=== PATIENT | female | born 1960 | race Caucasian/White ===

== ENCOUNTER 2021-10-25 20:18 | Inpatient (IN) | payer OTHER ==
[2021-10-25 20:25] VITALS: BMI 24.3
[2021-10-25] MEDS ORDERED: ONDANSETRON 4 MG/2 ML VIAL IVPUSH ONE (20:58)
[2021-10-25] MEDS ORDERED: morphine CARPU-JECT 4 MG/1 ML DISP.SYRIN IVPUSH ONE (20:58)
[2021-10-25] MEDS ORDERED: morphine SULFATE 4 MG/ML VIAL IVPUSH ONE (20:58)
[2021-10-25] MEDS ORDERED: morphine SULFATE 4 MG/ML VIAL ONE (21:55)
[2021-10-25 22:09] LABS: BASO % 0.2 % (0-2.0); EOS % 0.1 % (0-4.5); HEMATOCRIT 42.6 % (32.4-45.2); HEMOGLOBIN 14.1 GM/dL (10.7-15.3); MCHC 33.1 g/dl (32.0-36.0); MEAN CELL VOLUME 87.5 fl (80-96); MEAN PLT VOLUME 8.5 fl (7.5-11.1); MONO % 8.9 % (3.8-10.2); NEUT % 85.8 % (42.8-82.8); PLATELET COUNT 278 10^3/uL (134-434); RBC 4.87 M/mm3 (3.60-5.2); WHITE BLOOD COUNT 15.2 K/mm3 (4.0-10.0)
[2021-10-25 22:17] LABS: INR 1.01 (0.83-1.09); PROTHROMBIN TIME (PATIENT) 11.6 SEC (9.7-13.0)
[2021-10-25 22:19] LABS: URINE APPEARANCE CLEAR; URINE BILIRUBIN 1+ (NEGATIVE); URINE COLOR DK YELLOW; URINE GLUCOSE (UA) NEGATIVE (NEGATIVE); URINE KETONE 2+ (NEGATIVE); URINE LEUK ESTERASE NEGATIVE (NEGATIVE); URINE NITRITE NEGATIVE (NEGATIVE); URINE PROTEIN NEGATIVE (NEGATIVE)
[2021-10-25 22:20] LABS: ACTIVATED PTT 27.4 SECONDS (25.2-36.5)
[2021-10-25 22:30] LABS: CHLORIDE 105 mmol/L (98-107); SODIUM 142 mmol/L (136-145)
[2021-10-25 22:33] LABS: ANION GAP 9 MMOL/L (8-16); CALCIUM 10.7 mg/dL (8.5-10.1); CO2 28 mmol/L (21-32); GLUCOSE,RANDOM 134 mg/dL (74-106)
[2021-10-25 22:34] LABS: BLOOD UREA NITROGEN 10.6 mg/dL (7-18)
[2021-10-25 22:36] LABS: CREATININE 0.7 mg/dL (0.55-1.3); SGOT/AST 345 U/L (15-37)
[2021-10-25 22:37] LABS: SGPT/ALT 539 U/L (13-61)
[2021-10-25 22:38] LABS: BILIRUBIN,TOTAL 4.7 mg/dL (0.2-1); TOT PROT 7.4 g/dl (6.4-8.2)
[2021-10-25 22:39] LABS: ALK PHOS 251 U/L (45-117)
[2021-10-25] MEDS ORDERED: PIPERACILLIN/TAZOB 4.5 GM 4.5 GM in DEXTROSE 5%-WATER 100 ML IVPB ONE (22:55)
[2021-10-26] MEDS ORDERED: PIPERACILLIN/TAZOB 4.5 GM 4.5 GM/100 ML BAG IVPB ONE (00:01)
[2021-10-26 00:18] LABS: LIPASE > 30000 U/L (73-393)
[2021-10-26] MEDS ORDERED: LACTATED RINGERS SOLUTION 1000 ML INFUS.BAG IV ONE (00:50)
[2021-10-26] MEDS ORDERED: LISINOPRIL 20 MG TABLET PO ONE (03:59)
[2021-10-26] MEDS ORDERED: PIPERACILLIN/TAZOB 3.375 GM 3.375 GM in DEXTROSE 5%-WATER - 50 ML IVPB ONE ×2 (06:20→14:00)
[2021-10-26] MEDS ORDERED: LISINOPRIL 20 MG TABLET ONE (06:21)
[2021-10-26] MEDS ORDERED: POTASSIUM CHLORIDE ORAL LIQUID 20 MEQ/15 ML PO ONE (06:26)
[2021-10-26] MEDS ORDERED: LACTATED RINGERS SOLUTION 1,000 ML/1,000 ML INFUS.BAG IV SCH ×2 (06:30→16:38)
[2021-10-26] MEDS ORDERED: POTASSIUM CHLORIDE TABS 20 MEQ TABLET.ER (FP) PO ONE (06:35)
[2021-10-26 09:08] LABS: HEMATOCRIT 39.2 % (32.4-45.2); HEMOGLOBIN 13.1 GM/dL (10.7-15.3); MCH 29.6 pg (25.7-33.7); MCHC 33.5 g/dl (32.0-36.0); MEAN CELL VOLUME 88.2 fl (80-96); MEAN PLT VOLUME 8.8 fl (7.5-11.1); PLATELET COUNT 250 10^3/uL (134-434); RBC 4.45 M/mm3 (3.60-5.2); RDW 13.2 % (11.6-15.6); WHITE BLOOD COUNT 10.6 K/mm3 (4.0-10.0)
[2021-10-26] MEDS ORDERED: PIPERACILLIN/TAZOB 3.375 GM 3.375 GM/50 ML BAG IVPB ONE (09:42)
[2021-10-26 09:44] LABS: CHOLESTEROL 178 mg/dL (50-200); TRIGLYCERIDES 59 mg/dL (0-150)
[2021-10-26 09:45] LABS: LDL CHOLESTEROL (ONLY SJRH) 111 mg/dL (5-100)
[2021-10-26 09:47] LABS: HDL CHOLESTEROL 57 mg/dL (40-60)
[2021-10-26 09:59] LABS: CALCIUM 10.5 mg/dL (8.5-10.1)
[2021-10-26 10:00] LABS: CREATININE 0.7 mg/dL (0.55-1.3); TOT PROT 6.4 g/dl (6.4-8.2)
[2021-10-26] MEDS ORDERED: HYDROCHLOROTHIAZIDE 12.5 MG CAPSULE (FP) PO SCH (10:00)
[2021-10-26] MEDS ORDERED: HYDROCHLOROTHIAZIDE 25 MG TABLET (FP) PO SCH (10:00)
[2021-10-26] MEDS ORDERED: LACTATED RINGERS SOLUTION 1000 ML INFUS.BAG IV SCH (10:00)
[2021-10-26] MEDS ORDERED: PIPERACILLIN/TAZOB 3.375 GM 3.375 GM in DEXTROSE 5%-WATER - 50 ML IVPB SCH (10:00)
[2021-10-26 10:02] LABS: ALBUMIN 3.4 g/dl (3.4-5.0); MAGNESIUM 2.1 mg/dL (1.8-2.4)
[2021-10-26] MEDS: PIPERACILLIN/TAZOB 3.375 GM 3.375 GM in DEXTROSE 5%-WATER - 50 ML IVPB SCH ×2 (10:03→18:06)
[2021-10-26 10:05] LABS: PHOSPHOROUS 2.8 mg/dL (2.5-4.9)
[2021-10-26 10:10] LABS: BILIRUBIN,TOTAL 3.8 mg/dL (0.2-1)
[2021-10-26 10:33] LABS: AMYLASE 439 U/L (25-115)
[2021-10-26] MEDS ORDERED: INDOMETHACIN 50 MG RECTAL SUPPOSITORY PR ONE (13:00)
[2021-10-26] MEDS ORDERED: IOHEXOL 300 MG/ML INFUS..BTL IJ ONE (13:55)
[2021-10-26] MEDS ORDERED: DEXTROSE 5%-WATER - 50 ML IVPB ONE (18:03)
[2021-10-26] MEDS ORDERED: PIPERACILLIN/TAZOBACTAM 3.375 GM VIAL IVPB ONE (18:03)
[2021-10-26] MEDS ORDERED: LISINOPRIL 20 MG TABLET PO SCH (22:00)
[2021-10-27] MEDS ORDERED: PIPERACILLIN/TAZOBACTAM 3.375 GM VIAL IVPB ONE ×3 (01:02→17:40)
[2021-10-27] MEDS ORDERED: DEXTROSE 5%-WATER - 50 ML IVPB ONE ×3 (01:02→17:40)
[2021-10-27] MEDS: PIPERACILLIN/TAZOB 3.375 GM 3.375 GM in DEXTROSE 5%-WATER - 50 ML IVPB SCH ×3 (01:46→17:49)
[2021-10-27] MEDS ORDERED: LACTATED RINGERS SOLUTION 1,000 ML/1,000 ML INFUS.BAG IV SCH ×2 (05:50→12:00)
[2021-10-27 09:39] LABS: BASO % 0.3 % (0-2.0); EOS % 3.5 % (0-4.5); HEMATOCRIT 36.8 % (32.4-45.2); HEMOGLOBIN 12.3 GM/dL (10.7-15.3); MCH 29.6 pg (25.7-33.7); MCHC 33.5 g/dl (32.0-36.0); MEAN CELL VOLUME 88.3 fl (80-96); MEAN PLT VOLUME 9.3 fl (7.5-11.1); MONO % 9.7 % (3.8-10.2); NEUT % 70.5 % (42.8-82.8); PLATELET COUNT 211 10^3/uL (134-434); RBC 4.16 M/mm3 (3.60-5.2); RDW 13.1 % (11.6-15.6); WHITE BLOOD COUNT 8.6 K/mm3 (4.0-10.0)
[2021-10-27] MEDS: ENOXAPARIN NA (PORCINE) 40 MG/0.4 ML DISP.SYRIN SQ SCH (10:02)
[2021-10-27 10:15] LABS: ALBUMIN 2.9 g/dl (3.4-5.0); CALCIUM 9.8 mg/dL (8.5-10.1); MAGNESIUM 1.9 mg/dL (1.8-2.4)
[2021-10-27 10:16] LABS: BILIRUBIN,DIRECT 1.4 mg/dL (0.0-0.2)
[2021-10-27 10:17] LABS: CREATININE 0.6 mg/dL (0.55-1.3)
[2021-10-27 10:19] LABS: BILIRUBIN,TOTAL 2.3 mg/dL (0.2-1); TOT PROT 5.7 g/dl (6.4-8.2)
[2021-10-27] MEDS ORDERED: POTASSIUM CHLORIDE TABS 20 MEQ TABLET.ER (FP) PO ONE (16:44)
[2021-10-28] MEDS ORDERED: DEXTROSE 5%-WATER - 50 ML IVPB ONE ×3 (00:17→17:18)
[2021-10-28] MEDS ORDERED: PIPERACILLIN/TAZOBACTAM 3.375 GM VIAL IVPB ONE ×3 (00:17→17:17)
[2021-10-28] MEDS: PIPERACILLIN/TAZOB 3.375 GM 3.375 GM in DEXTROSE 5%-WATER - 50 ML IVPB SCH ×3 (01:01→17:30)
[2021-10-28 09:20] LABS: BASO % 0.2 % (0-2.0); EOS % 6.4 % (0-4.5); HEMATOCRIT 35.3 % (32.4-45.2); HEMOGLOBIN 12.1 GM/dL (10.7-15.3); LYMPH % 19.2 % (8-40); MCH 29.9 pg (25.7-33.7); MCHC 34.2 g/dl (32.0-36.0); MEAN CELL VOLUME 87.6 fl (80-96); MEAN PLT VOLUME 8.8 fl (7.5-11.1); MONO % 10.4 % (3.8-10.2); NEUT % 63.8 % (42.8-82.8); PLATELET COUNT 218 10^3/uL (134-434); RBC 4.04 M/mm3 (3.60-5.2); RDW 13.1 % (11.6-15.6); WHITE BLOOD COUNT 8.3 K/mm3 (4.0-10.0)
[2021-10-28] MEDS: ENOXAPARIN NA (PORCINE) 40 MG/0.4 ML DISP.SYRIN SQ SCH (09:43)
[2021-10-28 10:38] LABS: CREATININE 0.7 mg/dL (0.55-1.3)
[2021-10-28 10:39] LABS: CALCIUM 9.7 mg/dL (8.5-10.1)
[2021-10-28 10:40] LABS: ALBUMIN 3.1 g/dl (3.4-5.0); BLOOD UREA NITROGEN 9.3 mg/dL (7-18); TOT PROT 6.2 g/dl (6.4-8.2)
[2021-10-28 10:43] LABS: BILIRUBIN,DIRECT 0.8 mg/dL (0.0-0.2)
[2021-10-28 10:45] LABS: BILIRUBIN,TOTAL 1.3 mg/dL (0.2-1)
[2021-10-28] MEDS: amLODIPine BESYLATE 5 MG TABLET (FP) PO SCH (11:57)
[2021-10-28] MEDS: LACTATED RINGERS SOLUTION 1,000 ML/1,000 ML INFUS.BAG IV SCH (23:15)
[2021-10-29] MEDS ORDERED: DEXTROSE 5%-WATER - 50 ML IVPB ONE ×3 (01:01→16:40)
[2021-10-29] MEDS ORDERED: PIPERACILLIN/TAZOBACTAM 3.375 GM VIAL IVPB ONE ×3 (01:01→16:40)
[2021-10-29] MEDS: PIPERACILLIN/TAZOB 3.375 GM 3.375 GM in DEXTROSE 5%-WATER - 50 ML IVPB SCH ×3 (01:14→17:13)
[2021-10-29 08:44] LABS: BASO % 0.3 % (0-2.0); HEMATOCRIT 38.6 % (32.4-45.2); HEMOGLOBIN 13.1 GM/dL (10.7-15.3); LYMPH % 20.8 % (8-40); MCH 29.6 pg (25.7-33.7); MCHC 33.8 g/dl (32.0-36.0); MEAN CELL VOLUME 87.6 fl (80-96); MEAN PLT VOLUME 8.7 fl (7.5-11.1); MONO % 10.3 % (3.8-10.2); NEUT % 62.6 % (42.8-82.8); PLATELET COUNT 240 10^3/uL (134-434); RBC 4.41 M/mm3 (3.60-5.2); WHITE BLOOD COUNT 6.5 K/mm3 (4.0-10.0)
[2021-10-29 09:00] LABS: MAGNESIUM 2.1 mg/dL (1.8-2.4)
[2021-10-29 09:01] LABS: ALBUMIN 3.2 g/dl (3.4-5.0); CALCIUM 9.9 mg/dL (8.5-10.1)
[2021-10-29 09:03] LABS: CREATININE 0.6 mg/dL (0.55-1.3)
[2021-10-29 09:04] LABS: BILIRUBIN,DIRECT 0.6 mg/dL (0.0-0.2)
[2021-10-29 09:05] LABS: TOT PROT 6.6 g/dl (6.4-8.2)
[2021-10-29 09:06] LABS: BILIRUBIN,TOTAL 0.9 mg/dL (0.2-1)
[2021-10-29] MEDS: ENOXAPARIN NA (PORCINE) 40 MG/0.4 ML DISP.SYRIN SQ SCH (09:36)
[2021-10-29] MEDS: amLODIPine BESYLATE 5 MG TABLET (FP) PO SCH (09:37)
[2021-10-29] MEDS: LACTATED RINGERS SOLUTION 1,000 ML/1,000 ML INFUS.BAG IV SCH (22:45)
[2021-10-30] MEDS ORDERED: DEXTROSE 5%-WATER - 50 ML IVPB ONE ×3 (00:57→17:02)
[2021-10-30] MEDS ORDERED: PIPERACILLIN/TAZOBACTAM 3.375 GM VIAL IVPB ONE ×3 (00:57→17:01)
[2021-10-30] MEDS: PIPERACILLIN/TAZOB 3.375 GM 3.375 GM in DEXTROSE 5%-WATER - 50 ML IVPB SCH ×3 (01:08→17:35)
[2021-10-30] MEDS: LACTATED RINGERS SOLUTION 1,000 ML/1,000 ML INFUS.BAG IV SCH ×2 (06:14→22:53)
[2021-10-30 07:38] LABS: BASO % 0.3 % (0-2.0); HEMOGLOBIN 13.2 GM/dL (10.7-15.3); LYMPH % 26.4 % (8-40); MCH 29.4 pg (25.7-33.7); MCHC 33.8 g/dl (32.0-36.0); MONO % 11.8 % (3.8-10.2); NEUT % 55.5 % (42.8-82.8); PLATELET COUNT 271 10^3/uL (134-434); RBC 4.48 M/mm3 (3.60-5.2); RDW 13.2 % (11.6-15.6)
[2021-10-30 07:57] LABS: ALBUMIN 3.3 g/dl (3.4-5.0)
[2021-10-30 07:58] LABS: CALCIUM 10.3 mg/dL (8.5-10.1); TOT PROT 6.8 g/dl (6.4-8.2)
[2021-10-30 07:59] LABS: ALBUMIN 3.2 g/dl (3.4-5.0); BLOOD UREA NITROGEN 10.3 mg/dL (7-18); MAGNESIUM 2.2 mg/dL (1.8-2.4)
[2021-10-30 08:00] LABS: BILIRUBIN,DIRECT 0.5 mg/dL (0.0-0.2)
[2021-10-30 08:02] LABS: BILIRUBIN,TOTAL 0.8 mg/dL (0.2-1); CREATININE 0.7 mg/dL (0.55-1.3)
[2021-10-30 08:03] LABS: BILIRUBIN,TOTAL 0.9 mg/dL (0.2-1); TOT PROT 6.8 g/dl (6.4-8.2)
[2021-10-30] MEDS ORDERED: amLODIPine BESYLATE 10 MG TABLET (FP) PO SCH (10:00)
[2021-10-30] MEDS ORDERED: BUPIVACAINE HCL/PF 0.5% (5MG/ML) 10 ML VIAL ONE (11:12)
[2021-10-30] MEDS ORDERED: ACETAMINOPHEN INJECTION 100 ML IVPB ONE (12:05)
[2021-10-30] MEDS ORDERED: ceFAZolin SODIUM 1 GM VIAL IVPB ONE ×2 (12:46→13:10)
[2021-10-30] MEDS ORDERED: PROPOFOL 20 ML ONE ×2 (12:52→13:13)
[2021-10-30] MEDS ORDERED: ROCURONIUM BROMIDE 50 MG/5 ML SYRINGE ONE (12:53)
[2021-10-30] MEDS ORDERED: SUCCINYLCHOLINE CHLORIDE 200 MG/10 ML SYRINGE ONE (12:53)
[2021-10-30] MEDS ORDERED: KETAMINE HCL 200 MG/20 ML VIAL ONE (12:53)
[2021-10-30] MEDS ORDERED: BUPIVACAINE HCL/PF 0.5% (5MG/ML) 10 ML VIAL IJ ONE ×2 (13:12)
[2021-10-30] MEDS ORDERED: ONDANSETRON 4 MG/2 ML VIAL IVPUSH PRN ×2 (14:21→14:34)
[2021-10-30] MEDS ORDERED: PIPERACILLIN/TAZOB 3.375 GM 3.375 GM in DEXTROSE 5%-WATER - 50 ML IVPB ONE (14:34)
[2021-10-31] MEDS ORDERED: DEXTROSE 5%-WATER - 50 ML IVPB ONE ×2 (01:14→08:34)
[2021-10-31] MEDS ORDERED: PIPERACILLIN/TAZOBACTAM 3.375 GM VIAL IVPB ONE ×2 (01:14→08:34)
[2021-10-31] MEDS: PIPERACILLIN/TAZOB 3.375 GM 3.375 GM in DEXTROSE 5%-WATER - 50 ML IVPB SCH ×2 (01:36→09:05)
[2021-10-31] MEDS: LACTATED RINGERS SOLUTION 1,000 ML/1,000 ML INFUS.BAG IV SCH (06:50)
[2021-10-31 07:21] VITALS: RESP 18
[2021-10-31 09:17] LABS: BILIRUBIN,DIRECT 0.4 mg/dL (0.0-0.2)
[2021-10-31 09:18] LABS: BILIRUBIN,TOTAL 0.8 mg/dL (0.2-1)
[2021-10-31 09:19] LABS: TOT PROT 6.2 g/dl (6.4-8.2)
[2021-10-31] MEDS ORDERED: amLODIPine BESYLATE 10 MG TABLET (FP) PO SCH (10:00)
[2021-10-31] MEDS ORDERED: ENOXAPARIN NA (PORCINE) 40 MG/0.4 ML DISP.SYRIN SQ SCH (10:00)
[2021-10-31 12:09] VITALS: BP 146/84; PULSE 86
[2021-10-31 12:34] VITALS: TEMP 99
== END 2021-10-31 14:59 | disposition home or self-care (01) | DRG 263 ==
LOC: JER 20:18 → JERBED 10-26 05:17 → J7W 10-26 15:47
PROVIDERS: ADMIT Internal Medicine; ATTEND Nurse Practitioner Family
PROC: 0FC98ZZ Extirpation of Matter from Common Bile Duct, Via Natural or Artificial Opening Endoscopic (ICD-10-PCS; 2021-10-26)
PROC: BF13YZZ Fluoroscopy of Gallbladder and Bile Ducts using Other Contrast (ICD-10-PCS; 2021-10-26)
PROC: 0FT44ZZ Resection of Gallbladder, Percutaneous Endoscopic Approach (ICD-10-PCS; principal; 2021-10-30 12:00)
DX: K85.10 Biliary acute pancreatitis without necrosis or infection (principal); K83.8 Other specified diseases of biliary tract; K76.0 Fatty (change of) liver, not elsewhere classified; K86.89 Other specified diseases of pancreas; R79.89 Other specified abnormal findings of blood chemistry; K80.70 Calculus of gallbladder and bile duct without cholecystitis without obstruction; E03.9 Hypothyroidism, unspecified; I10 Essential (primary) hypertension; K80.10 Calculus of gallbladder with chronic cholecystitis without obstruction; R10.31 Right lower quadrant pain
CPT/HCPCS: 36415; 74177-TC; 76000-TC-FY; 76705-TC; 80053; 80061; 80076; 81003; 82150; 83605; 83690; 83735; 84100; 84443; 84478; 84484; 85025; 85027; 85610; 85730; 86140; 86850; 86900; 86901; 87086; 87186; 88304-TC; 93005; 93010; 94760; 99285-25; C9803-CS; Q9967; U0003; U0005

== ENCOUNTER 2022-01-10 11:07 | Emergency (ER) | payer OTHER ==
[2022-01-10 11:15] VITALS: BP 162/85; PULSE 92; RESP 18; TEMP 98.5; BMI 24.9
== END 2022-01-10 13:24 | disposition home or self-care (01) ==
LOC: JER 11:07
DX: I10 Essential (primary) hypertension (principal)
CPT/HCPCS: 93005; 93010; 99283-25

== ENCOUNTER 2022-05-15 11:22 | Emergency (ER) | payer OTHER ==
[2022-05-15 11:32] VITALS: BP 143/88; PULSE 86; RESP 19; TEMP 98.4; BMI 28.4
[2022-05-15] MEDS ORDERED: ACETAMINOPHEN 1000 MG/100 ML BAG IVPB ONE (12:55)
[2022-05-15] MEDS ORDERED: SODIUM CHLORIDE 0.9% 500 ML INFUS.BAG IV ONE (12:55)
[2022-05-15] MEDS ORDERED: ACETAMINOPHEN INJECTION 100 ML IVPB ONE (13:10)
[2022-05-15 14:30] LABS: BASO % 0.1 % (0-2.0); HEMATOCRIT 39.1 % (32.4-45.2); HEMOGLOBIN 13.1 GM/dL (10.7-15.3); LYMPH % 28.9 % (8-40); MCH 30.6 pg (25.7-33.7); MCHC 33.5 g/dl (32.0-36.0); MEAN CELL VOLUME 91.6 fl (80-96); MEAN PLT VOLUME 8.9 fl (7.5-11.1); MONO % 10.1 % (3.8-10.2); NEUT % 59.9 % (42.8-82.8); PLATELET COUNT 225 10^3/uL (134-434); RBC 4.26 M/mm3 (3.60-5.2); RDW 15.9 % (11.6-15.6); WHITE BLOOD COUNT 5.3 K/mm3 (4.0-10.0)
[2022-05-15 14:40] LABS: INR 0.98 (0.83-1.09); PROTHROMBIN TIME (PATIENT) 11.4 SEC (9.7-13.0)
[2022-05-15 14:43] LABS: ACTIVATED PTT 29.9 SECONDS (25.2-36.5)
[2022-05-15 14:50] LABS: ALBUMIN 4.4 g/dl (3.4-5.0); BLOOD UREA NITROGEN 9.6 mg/dL (7-18)
[2022-05-15 14:54] LABS: CREATININE 0.8 mg/dL (0.55-1.3); TOT PROT 7.4 g/dl (6.4-8.2)
[2022-05-15 14:56] LABS: BILIRUBIN,TOTAL 0.7 mg/dL (0.2-1)
[2022-05-15] MEDS ORDERED: ONDANSETRON 4 MG/2 ML VIAL IVPUSH ONE (18:08)
== END 2022-05-15 20:05 | disposition home or self-care (01) ==
LOC: JER 11:22
PROC: 3E0333Z Introduction of Anti-inflammatory into Peripheral Vein, Percutaneous Approach (ICD-10-PCS; principal; 2022-05-15)
PROC: 3E033GC Introduction of Other Therapeutic Substance into Peripheral Vein, Percutaneous Approach (ICD-10-PCS; 2022-05-15)
DX: R10.32 Left lower quadrant pain (principal)
CPT/HCPCS: 0241U-QW; 36415; 74177-TC; 80053; 83690; 84484; 85025; 85610; 85730; 93005; 93010; 99285-25; Q9967

== ENCOUNTER → 2022-06-19 | Day surgery (SDC) | payer OTHER ==
[2022-06-15 09:04] VITALS: BMI 26.6
== END | disposition home or self-care (01) ==
LOC: JASU-ENDO 05:37
PROVIDERS: ATTEND Student in an Organized Health Care Education/Training Program
DX: Z53.9 Procedure and treatment not carried out, unspecified reason (principal)

== ENCOUNTER 2022-07-16 15:48 | Emergency (ER) | payer OTHER ==
[2022-07-16 16:02] VITALS: BP 123/78; PULSE 81; RESP 20; TEMP 98.8; BMI 24.2
[2022-07-16] MEDS ORDERED: ALBUTEROL SO4 0.083% IH SOL 2.5 MG/3 ML VIAL.NEB. NEB ONE (16:59)
[2022-07-16] MEDS ORDERED: ALBUTEROL SO4 2.5/IPRATROPIUM 0.5 INH SOL 3 ML VIAL.NEB. NEB ONE ×3 (17:03→17:57)
[2022-07-16] MEDS ORDERED: predniSONE 20 MG TABLET (UD) PO ONE (17:03)
[2022-07-16] MEDS ORDERED: predniSONE 20 MG TABLET (UD) ONE (17:04)
== END 2022-07-16 18:46 | disposition home or self-care (01) ==
LOC: JERFT 15:48
PROC: 3E0F7GC Introduction of Other Therapeutic Substance into Respiratory Tract, Via Natural or Artificial Opening (ICD-10-PCS; principal; 2022-07-16)
PROC: 3E0F7GC Introduction of Other Therapeutic Substance into Respiratory Tract, Via Natural or Artificial Opening (ICD-10-PCS; 2022-07-16)
DX: J45.20 Mild intermittent asthma, uncomplicated (principal); J06.9 Acute upper respiratory infection, unspecified; B97.89 Other viral agents as the cause of diseases classified elsewhere; R50.9 Fever, unspecified; R09.81 Nasal congestion; R07.89 Other chest pain; R06.02 Shortness of breath; R05.1 Acute cough; Z20.822 Contact with and (suspected) exposure to COVID-19
CPT/HCPCS: 0241U-QW; 71046-TC-FY; 93005; 93010; 99285-25

== ENCOUNTER 2022-08-07 04:29 | Day surgery (SDC) | payer OTHER ==
[2022-08-06 08:33] VITALS: BMI 26.6
[2022-08-07 11:54] VITALS: BP 133/81; PULSE 65; RESP 18; TEMP 97.1
== END 2022-08-07 10:00 | disposition home or self-care (01) ==
LOC: JASU-ENDO 04:29
PROVIDERS: ATTEND Student in an Organized Health Care Education/Training Program
PROC: 0DBM8ZX Excision of Descending Colon, Via Natural or Artificial Opening Endoscopic, Diagnostic (ICD-10-PCS; principal; 2022-08-07 09:30)
DX: D12.4 Benign neoplasm of descending colon (principal); K64.8 Other hemorrhoids
CPT/HCPCS: 88305-TC